=== PATIENT | female | born 2000 ===

== ENCOUNTER 2019-02-12 06:29 | Emergency (ER) | payer SELFPAY ==
[2019-02-12] MEDS ORDERED: MEDR150D IM (06:34)
--- NOTE | 2019-02-12 06:36 | ER Report ---
History and Physical Time Seen By MD: 06:34 (ERIKA DINH MD) Time Seen By MD: 06:59 (GLORIA ESTEVEZ DO) HPI/ROS CHIEF COMPLAINT: chest pain HISTORY OF PRESENT ILLNESS: This is a 18 year old female. She awoke from a sound sleep with chest pain. Central chest up to neck, felt like pins and needles. Worse with deep breaths, worse with lying on stomach, no other radiation. No sweating, no nausea, no shortness of breath. Has asthma, but does not have a rescue inhaler and no wheezing. No fevers or chills. No sore throat or congestion. No history of heart problems or lung problems other than the asthma. Has never had pain like this in the past. 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 No rashes or swelling. (ERIKA DINH MD) HPI/ROS Please see Dr. Dinh's note (GLORIA ESTEVEZ DO) Allergies: Coded Allergies: [facility] And Derivatives (Verified Allergy, Intermediate, 02/12/19) Home Meds Active Scripts Prednisone (PREDNISONE) 50 Mg Tablet, 50 MG PO QDAY for 3 Days, #3 TAB Prov:GLORIA ESTEVEZ DO 02/12/19 Reported Medications Medroxyprogesterone Acet 150 Mg (DEPO-PROVERA 150 MG) 150 Mg/1 Ml Disp.syrin, 150 MG IM [id number], DIS.SYR EVERY 3 MONTHS 02/12/19 Reviewed Nurses Notes: Yes (ERIKA DINH MD) Constitutional Vital Sign - Last 24 Hours 02/12/19 02/12/19 02/12/19 02/12/19 06:29 06:32 06:33 06:45 Temp 98.9 Pulse 82 86 Resp 12 B/P (MAP) 110/76 110/76 (87) 120/71 (87) Pulse Ox 97 O2 Delivery Room Air 02/12/19 02/12/19 02/12/19 02/12/19 06:49 06:56 06:56 07:00 Pulse 89 89 Resp 20 18 B/P (MAP) 118/75 (89) Pulse Ox 97 O2 Delivery Room Air (GLORIA ESTEVEZ DO) Physical Exam General Appearance: The patient is alert. Is anxious and some distress regarding the symptoms. Non-toxic in appearance. Eyes: Pupils are equal, round. No pallor, injection or icterus. ENT: Mucous membranes are moist. Normal oral mucosa. Posterior oropharynx is normal. Neck: Supple and non tender. Respiratory: Lungs are clear to auscultation. Cardiovascular: Regular rate and rhythm. No murmurs, gallops or rubs. Normal capillary refill. No edema. Gastrointestinal: Abdomen is soft with some discomfort in the epigastric area. Nondistended. Normal active bowel sounds. Neurological: Alert and oriented x3. No focal neurologic deficits Skin: Warm and dry. No rashes. Musculoskeletal: Extremities are nontender. DIFFERENTIAL DIAGNOSIS: After history and physical exam, differential diagnosis was considered for chest pain including but not limited to myocardial ischemia, pericarditis pulmonary embolus, chest wall pain, pleural inflammation and pulmonary infectious causes. (ERIKA DINH MD) Physical Exam Please see Dr. Dinh's note (GLORIA ESTEVEZ DO) Medical Decision Making Data Points Result Diagram: 02/12/19 0650 02/12/19 0650 Laboratory Hematology Test 02/12/19 06:50 Red Blood Count 4.10 M/uL (4.17-5.56) Mean Corpuscular Volume 91.2 fL (80.0-96.0) Mean Corpuscular Hemoglobin 31.6 pg (26.0-33.0) Mean Corpuscular Hemoglobin Concent 34.7 g/dL (32.0-36.0) Red Cell Distribution Width 14.4 % (11.5-14.5) Mean Platelet Volume 9.2 fL (7.2-11.1) Neutrophils (%) (Auto) 38.6 % (39.4-72.5) Lymphocytes (%) (Auto) 46.8 % (17.6-49.6) Monocytes (%) (Auto) 10.3 % (4.1-12.4) Eosinophils (%) (Auto) 3.9 % (0.4-6.7) Basophils (%) (Auto) 0.4 % (0.3-1.4) Nucleated RBC Relative Count (auto) 0.2 /100WBC Neutrophils # (Auto) 2.0 K/uL (2.0-7.4) Lymphocytes # (Auto) 2.4 K/uL (1.3-3.6) Monocytes # (Auto) 0.5 K/uL (0.3-1.0) Eosinophils # (Auto) 0.2 K/uL (0.0-0.5) Basophils # (Auto) 0.0 K/uL (0.0-0.1) Nucleated RBC Absolute Count (auto) 0.01 K/uL D-Dimer Quantitative (PE/DVT) 0.43 ug/ml (0-0.50) Sodium Level 143 mmol/L (137-145) Potassium Level 2.6 mmol/L (3.5-5.0) Chloride Level 115 mmol/L (98-107) Carbon Dioxide Level 15 mmol/L (22-31) Blood Urea Nitrogen 11 mg/dl (7-18) Creatinine 1.20 mg/dl (0.52-1.04) Glomerular Filtration Rate Calc 57.9 Random Glucose 103 mg/dl (75-110) Calcium Level 9.3 mg/dl (8.4-10.2) Magnesium Level 2.2 mg/dl (1.7-2.2) Total Bilirubin 0.3 mg/dl (0.2-1.3) Aspartate Amino Transf (AST/SGOT) 16 U/L (0-35) Alanine Aminotransferase (ALT/SGPT) 20 U/L (0-56) Alkaline Phosphatase 66 U/L (0-126) Troponin I < 0.012 ng/ml Total Protein 8.4 g/dl (6.3-8.2) Albumin 4.4 g/dl (3.5-5.0) Human Chorionic Gonadotropin, Qual Negative (NEGATIVE) Chemistry Test 02/12/19 06:50 White Blood Count 5.1 k/uL (4.5-11.0) Red Blood Count 4.10 M/uL (4.17-5.56) Hemoglobin 13.0 g/dL (12.0-16.0) Hematocrit 37.4 % (34.0-47.0) Mean Corpuscular Volume 91.2 fL (80.0-96.0) Mean Corpuscular Hemoglobin 31.6 pg (26.0-33.0) Mean Corpuscular Hemoglobin Concent 34.7 g/dL (32.0-36.0) Red Cell Distribution Width 14.4 % (11.5-14.5) Platelet Count 227 K/uL (150-450) Mean Platelet Volume 9.2 fL (7.2-11.1) Neutrophils (%) (Auto) 38.6 % (39.4-72.5) Lymphocytes (%) (Auto) 46.8 % (17.6-49.6) Monocytes (%) (Auto) 10.3 % (4.1-12.4) Eosinophils (%) (Auto) 3.9 % (0.4-6.7) Basophils (%) (Auto) 0.4 % (0.3-1.4) Nucleated RBC Relative Count (auto) 0.2 /100WBC Neutrophils # (Auto) 2.0 K/uL (2.0-7.4) Lymphocytes # (Auto) 2.4 K/uL (1.3-3.6) Monocytes # (Auto) 0.5 K/uL (0.3-1.0) Eosinophils # (Auto) 0.2 K/uL (0.0-0.5) Basophils # (Auto) 0.0 K/uL (0.0-0.1) Nucleated RBC Absolute Count (auto) 0.01 K/uL D-Dimer Quantitative (PE/DVT) 0.43 ug/ml (0-0.50) Glomerular Filtration Rate Calc 57.9 Calcium Level 9.3 mg/dl (8.4-10.2) Magnesium Level 2.2 mg/dl (1.7-2.2) Total Bilirubin 0.3 mg/dl (0.2-1.3) Aspartate Amino Transf (AST/SGOT) 16 U/L (0-35) Alanine Aminotransferase (ALT/SGPT) 20 U/L (0-56) Alkaline Phosphatase 66 U/L (0-126) Troponin I < 0.012 ng/ml Total Protein 8.4 g/dl (6.3-8.2) Albumin 4.4 g/dl (3.5-5.0) Human Chorionic Gonadotropin, Qual Negative (NEGATIVE) Coagulation Test 02/12/19 06:50 D-Dimer Quantitative (PE/DVT) 0.43 ug/ml (GLORIA ESTEVEZ DO) EKG/Imaging Imaging 12 lead EKG: Rhythm: normal sinus rhythm, rate 85 [place]: normal QRS: normal ST segments: Nonspecific (ERIKA DINH MD) EKG Interpretation 12 lead EKG: Normal sinus rhythm, ventricular rate 85, QTC 423, no ischemic findings or arrhythmias present Rhythm: normal sinus rhythm [place]: normal QRS: normal ST segments: normal Imaging See radiology report for chest x-ray results (GLORIA ESTEVEZ DO) ED Course/Re-evaluation Clinical Indication for ER IV: Hydration, IV Access (ERIKA DINH MD) ED Course I assumed patient care from Dr. Dinh at 7:00 at shift change. Patient is a 18-year-old female who woke up this morning with chest discomfort, shortness breath with no prior history of reactive airway disease. Patient did have mild improvement with DuoNeb treatment. Patient was given prednisone starting a 3 day burst therapy. Patient was given an inhaler for home use in case she develops recurrent shortness breath. D-dimer, troponin were negative. Patient was found to have hypokalemia with potassium of 2.6. Patient was repleted using oral potassium 40 mEq. Chest x-ray showed no acute intrathoracic findings. Recommend establishing a PCP in order to try and labs. Return precautions were provided. Patient was hemodynamically stable throughout course. Decision to Disposition Date: Feb 12, 2019 Decision to Disposition Time: 08:04 (GLORIA ESTEVEZ DO) Depart Departure Latest Vital Signs Vital Signs Date Time Temp Pulse Resp B/P (MAP) Pulse Ox O2 Delivery O2 Flow Rate FiO2 02/12/19 07:00 118/75 (89) 02/12/19 06:56 89 18 02/12/19 06:56 97 Room Air 02/12/19 06:32 98.9 (GLORIA ESTEVEZ DO) Impression: Primary Impression: Shortness of breath Additional Impression: Hypokalemia Condition: Improved Disposition: HOME OR SELF-CARE New Scripts Prednisone (PREDNISONE) 50 Mg Tablet 50 MG PO QDAY for 3 Days, #3 TAB Prov: GLORIA ESTEVEZ DO 02/12/19 Patient Instructions: Dyspnea (GEN), Hypokalemia (ED) Additional Instructions: Please drink plenty of water. Please take prednisone 50 mg for the next 3 days. You may use your inhaler and take 2 puffs every 4-6 hours as needed for shortness of breath and wheezing. Please establish a primary care doctor in the next 3-5 days in order to get your labs rechecked. You were found to have low potassium levels and you were given oral potassium repletion. Please return pro mptly if you develop fevers, increasing shortness breath, cough, chest pains, inability to keep down food or fluids. Problem Qualifiers ERIKA DINH MD Feb 12, 2019 06:36 GLORIA ESTEVEZ DO Feb 12, 2019 07:01
[2019-02-12] MEDS ORDERED: ASPIRIN 81 MG CHEW PO ONE (06:40)
[2019-02-12] MEDS ORDERED: ALBUTEROL/IPRATROPIUM 3 ML NEB NEB ONE (06:45)
[2019-02-12] MEDS ORDERED: ASPIRIN 81 MG CHEW ONE (06:54)
[2019-02-12 07:04] LABS: PLATELET COUNT, AUTOMATED 227 K/uL (150-450)
[2019-02-12] MEDS ORDERED: POTASSIUM CHL 20 MEQ TABCR PO ONE (07:25)
[2019-02-12] MEDS ORDERED: NS(*) 0.9% 1000 ML BAG 1,000 ML IV ONE (07:25)
[2019-02-12] MEDS ORDERED: KCL (*) 20 MEQ/100 ML PREMIX 100 ML IV ONE (07:25)
[2019-02-12] MEDS ORDERED: ALBUTEROL 8 GM INHALER INH ONE (07:40)
[2019-02-12] MEDS ORDERED: predniSONE 20 MG TAB PO ONE (07:40)
[2019-02-12] MEDS ORDERED: PRED50TA22 PO (07:43)
[2019-02-12 08:30] VITALS: BP 112/72
--- NOTE | 2019-02-12 09:08 | EKG ---
FACILITY: [facility] - [place] PATIENT NAME: Mamie Sommer : [id number] MR: [id number] V: [id number] EXAM DATE: ORDERING PHYSICIAN: ERIKA MUNIZ TECHNOLOGIST: LOU Test Reason : CHEST PAIN Blood Pressure : / mmHG Vent. Rate : 085 BPM Atrial Rate : 085 BPM P-R Int : 136 ms QRS Dur : 096 ms QT Int : 356 ms P-R-T Axes : 067 076 004 degrees QTc Int : 423 ms Normal sinus rhythm T wave abnormality, consider inferior ischemia vs normal variant Abnormal ECG No previous ECGs available Confirmed by IVONE VERMA ([id number]) on 02/12/2019 6:05:11 PM Referred By: ERIKA MUNIZ Confirmed By:IVONE VERMA
--- NOTE | 2019-02-20 10:44 | RADIOLOGY IMAGING REPORT ---
FACILITY: [facility] - [place] PATIENT NAME: Mamie Sommer : 2000 MR: [id number] V: [id number] EXAM DATE: ORDERING PHYSICIAN: ERIKA MUNIZ TECHNOLOGIST: Location: [facility] [place] Patient: Mamie Sommer : 2000 Visit/Account:[id number] Date of Sevice: 02/12/2019 TWO VIEW CHEST 02/12/2019 6:36 AM. INDICATION: Chest Pain COMPARISON: None. FINDINGS: Lungs are well-expanded. The lungs are clear. No pneumothorax or pleural effusion. Heart size is normal. IMPRESSION: No acute abnormality. Report Dictated By: Anival Post MD at 02/12/2019 7:20 AM Report E-Signed By: Anival Post MD at 02/12/2019 7:24 AM WSN:[id number]
== END 2019-02-12 08:41 | disposition home or self-care (01) ==
LOC: ER 06:37
DX: E87.6 Hypokalemia (principal); R06.02 Shortness of breath
CPT/HCPCS: 71046; 83735; 84484; 84703; 85025; 85379; 93005; 94640; 96360; 99284; J7030; J7512; J7620; 82040; 82247; 82310; 82374; 82435; 82565; 82947; 84075; 84132; 84155; 84295; 84450; 84460; 84520

== ENCOUNTER → 2019-02-12 | Outpatient (CLI) | payer SELFPAY ==
[~2019-02-12] MED LIST: MEDR150D IM; PRED50TA22 PO
== END ==
LOC: AMB 06:13
PROVIDERS: ATTEND Nurse Practitioner
DX: R07.9 Chest pain, unspecified (principal)
CPT/HCPCS: A0425; A0427